=== PATIENT | female | born 2000 | race African-American/Black ===

== ENCOUNTER 2022-07-13 08:57 | Emergency (ER) | payer OTHER, MEDICAID ==
[~2022-07-13] VITALS: Ht 175.3 cm; Wt 77.0 kg
[2022-07-13] MEDS ORDERED: ACETAMINOPHEN 325MG TABLET PO ONE (09:30)
[2022-07-13] MEDS ORDERED: IBUP-2028 MT (10:33)
[2022-07-13] MEDS ORDERED: IBUPROFEN 600MG TABLET PO ONE (10:45)
[2022-07-13] MEDS ORDERED: LIDOCAINE 5% PATCH TOP SCH (10:45)
[2022-07-13 11:01] VITALS: BP 153/81
== END 2022-07-13 11:04 | disposition home or self-care (01) ==
LOC: ER 09:26
DX: M54.9 Dorsalgia, unspecified (principal); Z98.890 Other specified postprocedural states; V49.9XXA Car occupant (driver) (passenger) injured in unspecified traffic accident, initial encounter; Y93.89 Activity, other specified; Y92.89 Other specified places as the place of occurrence of the external cause; Y99.8 Other external cause status
CPT/HCPCS: 81025; 99283